=== PATIENT | female | born 1950 | race American Indian/Alaskan Native ===

== ENCOUNTER 2019-01-08 14:29 | Inpatient (IN) | payer MEDICARE, BC ==
[~2019-01-08] VITALS: Ht 167.6 cm; Wt 73.5 kg
[2019-01-08] MEDS ORDERED: CYMBALTA60 MG PO (17:31)
[2019-01-08] MEDS ORDERED: DIPHENHIST25 MG PO (17:31)
[2019-01-08] MEDS ORDERED: PEPCID AC20 MG PO (17:33)
[2019-01-08] MEDS ORDERED: GLUCAGEN1 MG/VIAL (17:34)
[2019-01-08] MEDS ORDERED: HUMALOG 30100 UNITS/ SC ×2 (17:34→17:40)
[2019-01-08] MEDS ORDERED: LISINOPRIL20 MG PO (17:35)
[2019-01-08] MEDS ORDERED: MAG-OX 400 MG400 MG PO (17:42)
[2019-01-08] MEDS ORDERED: GLUCOPHAGE1000 MG PO (17:43)
[2019-01-08] MEDS ORDERED: VITAMIN B-625 MG PO (17:44)
[2019-01-08] MEDS ORDERED: VITAMIN E200 UNI1 PO (17:46)
[2019-01-08] MEDS ORDERED: ZOCOR20 MG (17:52)
--- NOTE | 2019-01-08 18:16 | NUR ---
PATIENT ARRIVED VIA AMBULANCE FROM [facility]. PT WAS IN DUE TO OVERDOSING ON MEDICATIONS. PT AMBULATES. VITALS SIGNS: B/P: 150/94, P:99, R:18, T:98.8, O2:98% AND WEIGHT: 160.9, HEIGHT: 5'5. PT WEARS GLASSES, AMBULATES, HAS OWN TEETH, BANDAIDS ON ANTICUBICAL, SURGERY SCAR ON HEAD, ABD SCAR. PT IS VERY PLESANT. PASSCODE: 5831. PT DENIES ANY SI. PT BELONGINGS INVENTORY. PT IN PAPER SCRUBS AND NONSKID SOCKS. FULL CODE. PT STATES THE REASON FOR OVERDOSE IS FEELS NEGLECTED, FOR 47 YEARS, HE IS GRUMPY, IRRITATED, KNOWS IT ALL. Q [address]
[2019-01-08 18:38] VITALS: BP 150/94
[2019-01-08 22:46] VITALS: BP 150/94
--- NOTE | 2019-01-09 00:10 | NUR ---
PATIENT'S ADMIT AND HISTORY DONE THIS EVENING. PATIENT BELIEVES AND WANTS HELP WITH HER DIET, MAINLY HER SUGAR INTAKE BECAUSE SHE BELIEVES THAT SUGAR IS THE REASON FOR HER OUTBURSTS TOWARD HER AND HER FEELING OF WANTING TO AT TIMES, HOWEVER SHE DENIES BEING SUICIDIAL AT THIS TIME SINCE HER ADMISSION HERE. SHE TENDS TO GO FROM ONE SUBJECT TO ANOTHER AND SOMETIMES HESITATES BEFORE SHE ANSWERS A QUESION. APPRORIATE EYE CONTACT.
[2019-01-09 08:00] VITALS: BP 116/73
[2019-01-09 08:31] LABS: ALBUMIN 3.7 g/dL (3.4-5.0); ALKALINE PHOSPHATASE 71 U/L (46-116); ALT (SGPT) 34 U/L (10-68); CALC OSMOLALITY 280 mosm/kg (275-300); CALCIUM 9.1 mg/dL (8.5-10.1); CARBON DIOXIDE 24.8 mmol/L (21.0-32.0); CHLORIDE - SERUM 104 mmol/L (98-107); CHOL - HDL RATIO 5.8 ratio (2.3-4.1); CHOLESTEROL, TOTAL 226 mg/dL (0-200); CREATININE - SERUM 0.9 mg/dL (0.6-1.3); GLUCOSE 141 mg/dL (74-106); HDL CHOLESTEROL 39 mg/dL (32-96); POTASSIUM - SERUM 4.3 mmol/L (3.5-5.1); PROTEIN - SERUM 7.8 g/dL (6.4-8.2); SODIUM 138 mmol/L (136-145); THYROID STIMULATING HORMONE 0.95 uIU/mL (0.36-3.74); TRIGLYCERIDE 417 mg/dL (30-200); UREA NITROGEN 20 mg/dL (7-18); eGFR NON AFRICAN AMERICAN 66 mL/min (90-120)
--- NOTE | 2019-01-09 19:01 | NUR ---
PT SITTING AND READING A BOOK MOST OF THE DAY. PT IS ALERT AND ORIENTED X4. PT CAN MAKE NEEDS KNOWN. AMBULATES. PT HAD A SHOWER TODAY. PT DENIES S.I. PT COMPLIANT WITH MEDS, ASSESSMENT AND VITALS. PT HAS A WORRY ABOUT HER ALLERGIES, PERFUME AND FOOD. SHE MAKES COMMENTS ABOUT HER HEALTH CAUSING PROBLEMS. WILL CONT PLAN OF CARE.
--- NOTE | 2019-01-09 19:57 | NUR ---
RECEIVED IN DAYROOM. SITTING AT THE TABLE NOT SOCIALIZING AT THIS TIME. CALM AND COOPERATIVE WITH CARE AND ASSESSMENT. NO STATEMENTS OF SELF HARM VOICED. ENCOURAGE TO EXPRESS NEEDS. CONTINUES TO SIT QUIETLY AT TABLE. CONTINUE PLAN OF CARE
[2019-01-09 20:16] VITALS: BP 140/81
[2019-01-10 08:15] VITALS: BP 145/88
--- NOTE | 2019-01-10 10:00 | NUR ---
RECEIVED PATIENT IN DINING ROOM FOR B'FAST, ALERT, CALM, COOPERATIVE. INITIAL DOSE OF VALTREX ADMIN FOR LIP LESION. ALL OTHER MEDS ALSO ADMIN. COMPLIANT WITH MEDS. COOPERATIVE WITH STAFF AND PLAN OF CARE. CONT POC DIRECTED.
[2019-01-10 15:32] VITALS: Ht 167.6 cm; Wt 73.5 kg
--- NOTE | 2019-01-10 15:38 | PSY ---
PATIENT NAME:CLIFFORD BOYER MEDICAL RECORD: [id number] : 52 LOCATION:[facility] ADMISSION DATE: 01/08/19 ACCOUNT: [id number] PSYCHIATRIC EVALUATION DATE OF EVALUATION: 01/09/19 IDENTIFYING DATA: The patient is 68 years old, and she is admitted to the hospital on a voluntary basis. CHIEF COMPLAINT: Overdose. HISTORY OF PRESENT ILLNESS: Two, maybe 3 days ago, the patient had an argument with her and she took lisinopril and simvastatin. Both of the medications had recently been filled and she took the entire month's worth. She subsequently told her she had done this. He took her to [facility], where she was admitted. She continued to make suicidal statements there and they are documented by nursing staff there. She was subsequently transferred here once medically stabilized. She tells me that she has a very unhappy marriage, that she has been to her for 47 years and that it has never been happy. 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 This causes her a great deal of worry. PAST MEDICAL HISTORY: Significant for hypercholesterolemia, hypertension and diabetes. She also has obstructive sleep apnea. PAST PSYCHIATRIC HISTORY: Significant for a previous overdose around the year 2004. At that time, she took an overdose of Cymbalta. She did this privately. She woke up the next day and had some stomach cramping and diarrhea, but recovered fully. She did briefly see a psychiatrist around that period, but was subsequently lost to follow up. She has been on the Cymbalta for a long time and for some reason does not want me to change to a different medicine. She says she has heard things about different antidepressants, and she is afraid of them. She is willing to let me increase the dose of the one she is taking. FAMILY HISTORY: Unknown. ALLERGIES: PENICILLIN, CODEINE AND KEFLEX. CURRENT MEDICATIONS: Include lisinopril, Zocor, Cymbalta, Pepcid, Glucophage. SOCIAL HISTORY: The patient has been to the same man for 47 years. They have not gotten along the entire time. She has 3 adult children. 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 She has no history of drug or alcohol abuse, and she is a former cigarette smoker. MENTAL STATUS EXAMINATION: The patient is awake, alert and oriented to person, place, time and situation. Her mood is depressed. Her affect is constricted. Thought processes are circumstantial, but her memory, concentration, and abstraction abilities are intact. She denies current thoughts of harming herself and others as well as psychotic symptoms. ASSESSMENT: DIAGNOSES: AXIS I: Major depressive episode, severe, recurrent without psychotic features. AXIS II: Cluster C personality traits. AXIS III: Diabetes, hypertension, hypercholesterolemia, obstructive sleep apnea. AXIS IV: Moderate. AXIS V: Global assessment of functioning is 40. PLAN: At this time, the patient is admitted to the hospital secondary to an overdose associated with a depressive illness. She will be treated with antidepressant medicine and once it is reasonably established that she is not acutely dangerous to herself or others, she will be transitioned out of the hospital and home. Her long-term prognosis is guarded and follow up will be with an outpatient psychiatrist and therapist. TRANSINT:[id number] Voice Confirmation ID: [id number] DOCUMENT ID: [id number] DONTE OSORIO MD at 1538 CC: [id number] DICTATION DATE: 01/09/19 1209 APARTMENT COMMUNITY MANAGER: 01/09/[address] [facility] [place] [id number] [place] [address]
[2019-01-10 20:06] VITALS: BP 153/91
--- NOTE | 2019-01-10 21:02 | NUR ---
RECEIVED IN DAYROOM. WALKING ABOUT SOCIALIZING WITH A PEER. CALM AND COOPERATIVE WITH CARE AND ASSESSMENT. DENIES SELF HARM. ENCOURAGE TO EXPRESS NEEDS. WALKING TO BEDROOM AT THIS TIME. CONTINUE PLAN OF CARE
[2019-01-11 01:50] LABS: APPEARANCE CLEAR (CLEAR); BILIRUBIN NEGATIVE (NEGATIVE); COLOR STRAW (YELLOW); GLUCOSE NEGATIVE (NEGATIVE); KETONE NEGATIVE (NEGATIVE); NITRITE NEGATIVE (NEGATIVE); PROTEIN NEGATIVE (NEGATIVE); SPECIFIC GRAVITY 1.005 (1.005-1.020); UROBILINOGEN NORMAL (NORMAL)
[2019-01-11 08:00] VITALS: BP 127/70
--- NOTE | 2019-01-11 09:57 | NUR ---
RECEIVED PT. IN D/R FOR B'FAST, ALERT, CALM, SAD AFFECT, MEDS ADMIN. PER ORDERS WITH COMPLETE MED COMPLIACNE NOTED. COOPERATIVE WITH STAFF AND PLAN OF CARE. CONT POC DIRECTED.
--- NOTE | 2019-01-11 11:23 | PN ---
PATIENT:CLIFFORD BOYER MEDICAL RECORD: [id number] LOCATION:[facility] ADMISSION DATE: 01/08/19 PROGRESS NOTE DATE OF SERVICE: 01/10/2019 SUBJECTIVE: The patient's case was discussed with staff. She has no new complaint. OBJECTIVE: The patient denies intent to harm herself or others. She is tolerating her medicines well and has no thoughts of self-harm. ASSESSMENT: Major depression. PLAN: The patient will be maintained on current medicines, which I have reviewed. I am encouraged by her improvement thus far. She will be monitored for clinical changes. TRANSINT:[id number] Voice Confirmation ID: [id number] DOCUMENT ID: [id number] DONTE OSORIO MD at 1123 CC: [id number] DICTATION DATE: 01/10/19 165 GOLF CLUB FACER: 01/10/19 2223 ADM IN [place] [id number] [place] [id number]
[2019-01-11] MEDS ORDERED: FEXOFENADINE HC60 MG PO (11:27)
[2019-01-11] MEDS ORDERED: CYMBALTA30 MG PO (11:29)
--- NOTE | 2019-01-11 16:45 | NUR ---
PT. CALM, ALERT, DENIES SUICIDAL IDEATIONS. PERSONAL BELONGINGS RETURNED TO PATIENT. PATIENT DISCHARGED FROM UNIT IN CARE OF DAUGHTER. PT DENIES PAIN, NO S/S DISTRESS.
--- NOTE | 2019-01-12 12:53 | PN ---
PATIENT:CLIFFORD BYOER MEDICAL RECORD: [id number] LOCATION:[facility] ADMISSION DATE: 01/08/19 PROGRESS NOTE DATE OF SERVICE: 01/11/2019 SUBJECTIVE: The patient's case was discussed with staff. She has no new complaint. OBJECTIVE: The patient is in good behavioral control with limited insight about her condition. She tolerates her medicines well. ASSESSMENT: Major depression. PLAN: The patient has no evidence of acute or direct dangerousness. She is tolerating her medicines well. She will be transitioned out of the hospital and follow up will be with her primary care physician, outpatient psychiatrist, and outpatient therapist. TRANSINT:[id number] Voice Confirmation ID: [id number] DOCUMENT ID: [id number] DONTE OSORIO MD at 1253 CC: [id number] DICTATION DATE: 01/11/19 1126 FLOUR WORKER: 01/11/19 1132 DIS IN 01/11/19 [place] [id number] [place] [address]
--- NOTE | 2019-01-18 15:28 | DS ---
PATIENT:CLIFFORD BOYER :52 MEDICAL RECORD: [id number] DISCHARGE SUMMARY ADMISSION DATE: 01/08/19 DISCHARGE DATE: 01/11/19 IDENTIFYING DATA: The patient is 68 years old and she was admitted to the hospital on a voluntary basis because of an overdose. The patient apparently got into an argument with her and took an overdose of lisinopril and simvastatin. Both of the medications had just recently been filled and she took an entire month's worth. She subsequently told her that she done this and she was taken to [facility]. They admitted her and then subsequently transferred her here. It had been a couple of days since took the patient took the overdose and the acute episode had settled down. She apparently is unhappily . She has a lot of credit card debt and student loan debt. HOSPITAL COURSE: The patient was admitted to the hospital and fully evaluated from both a medical, psychological, and social standpoint. She was given antidepressant medicine. Had no thoughts of self-harm. Had an improvement in her mood and was subsequently transitioned to home. DISCHARGE DIAGNOSES: AXIS I: Major depressive episode, severe, recurrent without psychotic features. AXIS II: Cluster C personality traits. AXIS III: Diabetes, hypertension, hypercholesterolemia, obstructive sleep apnea. AXIS IV: Moderate. AXIS V: Global assessment of functioning is 45. PLAN: At the time of discharge, the patient was not acutely dangerous to herself or others. She was tolerating her medicines well. Her long-term prognosis is guarded. TRANSINT:[id number] Voice Confirmation ID: [id number] DOCUMENT ID: [id number] DONTE OSORIO MD at 1528 CC: [id number] DICTATION DATE: 01/17/19 1622 ARTS AND HUMANITIES COUNCIL DIRECTOR: 01/18/19 0152 DIS IN 01/11/19 [facility] [address] [place] [address]
[2019-01-27 16:49] LABS: RAPID PLASMA REAGIN Non-reactive
== END 2019-01-11 16:45 | disposition home or self-care (01) | DRG 885 ==
LOC: D.PSYCH 14:29
PROVIDERS: ADMIT Psychiatry & Neurology Psychiatry; ATTEND Psychiatry & Neurology Psychiatry
DX: F33.2 Major depressive disorder, recurrent severe without psychotic features (principal); E11.9 Type 2 diabetes mellitus without complications; I10 Essential (primary) hypertension; E78.00 Pure hypercholesterolemia, unspecified; G47.33 Obstructive sleep apnea (adult) (pediatric); E78.5 Hyperlipidemia, unspecified; E55.9 Vitamin D deficiency, unspecified; F60.89 Other specific personality disorders; B00.1 Herpesviral vesicular dermatitis